=== PATIENT | male | born 1980 | race Caucasian/White ===

== ENCOUNTER 2018-02-10 17:38 | Emergency (ER) | payer BC ==
[2018-02-10 17:58] LABS: #Basophils 0.1 thou/uL (0.0-0.2); #Eosinphils 0.3 thou/uL (0.0-0.7); #Lymphocytes 2.8 thou/uL (1.20-3.40); #Monocytes 0.7 thou/uL (0.11-0.59); #Neutrophils 7.5 thou/uL (1.40-6.50); %Basophils 0.7 % (0.0-1.0); %Eosinophils 2.7 % (0.0-10.0); %Lymphocytes 24.7 % (21.0-51.0); %Monocytes 6.2 % (0.0-10.0); %Neutrophils 65.7 % (42.0-75.0); Mean Corpuscular HGB CONC 34.7 g/dL (32.0-36.0); Mean Corpuscular Hemoglobin 31.7 pg (27.0-31.0); Mean Corpuscular Volume 91.5 fL (78.0-98.0); Mean Platelet Volume 8.2 fL (7.4-10.4); Platelet Count 244 thou/uL (130-400); RBC Distribution Width 12.4 % (11.5-14.5); Red Blood Cell (RBC) Count 5.04 mill/uL (4.70-6.10); White Blood Cell (WBC) Count 11.4 thou/uL (4.8-10.8)
[2018-02-10 18:17] LABS: ALT (SGPT) 85 U/L (8-55); AST (SGOT) 44 U/L (5-34); Albumin 4.7 g/dL (3.5-5.0); Alkaline Phosphatase 63 U/L (40-150); Anion Gap 14 mmol/L (10-20); BUN (Urea Nitrogen) 15 mg/dL (8.9-20.6); Bilirubin, Total 0.4 mg/dL (0.2-1.2); CK (CPK) 235 U/L (30-200); Calc. Creatinine Clearance 0 mL/min (70-130); Calcium 9.9 mg/dL (7.8-10.44); Carbon Dioxide 24 mmol/L (22-29); Chloride 103 mmol/L (98-107); Estimated GFR-MDRD 74; Globulin 3.2 g/dL (2.4-3.5); Glucose 93 mg/dL (70-105); Lipase 21 U/L (8-78); Protein, Total 7.9 g/dL (6.0-8.3); Sodium 137 mmol/L (136-145)
--- NOTE | 2018-02-10 18:18 | RAD ---
SINGLE VIEW OF THE CHEST: 02/10/18 COMPARISON: None. HISTORY: Chest pain since today radiating to the left arm. FINDINGS: Single view of the chest shows a normal sized cardiomediastinal silhouette. There is no evidence of c onsolidation, mass, or pleural effusion. The bones are unremarkable. IMPRESSION: No evidence of acute cardiopulmonary disease. POS: C
[2018-02-10 18:21] LABS: CKMB 1.4 ng/mL (0-6.6); Troponin I Less than 0.010 ng/mL (< 0.028)
[2018-02-10] MEDS ORDERED: Nitroglycerin 2% Ointment 1 INCH/1 GM Packet ONE (18:35)
[2018-02-10 21:26] LABS: Troponin I Less than 0.010 ng/mL (< 0.028)
== END 2018-02-10 22:31 | disposition home or self-care (01) ==
LOC: ERS 17:38
DX: R07.89 Other chest pain (principal); F17.210 Nicotine dependence, cigarettes, uncomplicated; I10 Essential (primary) hypertension
CPT/HCPCS: 36415; 71045; 80053; 82553; 83690; 84484; 85025; 85379; 93005; 96360

== ENCOUNTER 2019-12-23 23:10 | Emergency (ER) | payer BC ==
[2019-12-23] MEDS ORDERED: Ondansetron PF 4 MG/2 ML Vial ONE (23:30)
[2019-12-23] MEDS ORDERED: Ketorolac Tromethamine 30 MG/ML VIAL ONE (23:30)
--- NOTE | 2019-12-24 00:01 | CT ---
CT OF THE ABDOMEN AND PELVIS WITHOUT IV CONTRAST INDICATION: Left-sided flank pain COMPARISON: None FINDINGS: The lack of IV contrast limits evaluation of the solid organs of the abdomen and pelvis. ABDOMEN: Lung bases: Clear Liver: Diffuse fatty infiltration with areas of focal fatty sparing near the gallbladder fossa Gallbladder: Normal appearing. Pancreas: Normal. Adrenal glands: Normal. Spleen: Normal. Kidneys and ureters: Normal. No hydronephrosis. Vasculature: Normal. Lymph nodes:There is nonspecific silvano mesentery within the central mesenteric root. No pathologicall y enlarged lymph nodes are evident. Free fluid in abdomen:No free fluid is evident. PELVIS: Small and large bowel: There are scattered colonic diverticula without evidence of active diverticuli tis. Appendix:Normal Bladder: Normal. Rectal and perirectal soft tissues:Normal. Reproductive structures: Normal. Free fluid in pelvis: No free fluid is evident. Lymphadenopathy pelvis: No lymphadenopathy is evident. Osseous structures: No acute osseous abnormality. No destructive osteolytic or osteoblastic lesion i s identified. There is scattered degenerative and osteoarthritic changes. Soft tissues:There is a fat-containing umbilical hernia IMPRESSION: 1. No renal or ureteral calculus. 2. Colonic diverticulosis without evidence of active diverticulitis. 3. Fatty infiltration of the liver 4. Mild central silvano mesentery.
[2019-12-24 00:18] LABS: Anion Gap 15 mmol/L (10-20); BUN (Urea Nitrogen) 10 mg/dL (8.9-20.6); Calc. Creatinine Clearance 0 mL/min (70-130); Calcium 9.7 mg/dL (7.8-10.44); Carbon Dioxide 21 mmol/L (22-29); Chloride 106 mmol/L (98-107); Estimated GFR-MDRD 86; Glucose 131 mg/dL (70-105); Potassium 3.4 mmol/L (3.5-5.1); Sodium 139 mmol/L (136-145)
[2019-12-24] MEDS ORDERED: Morphine 4 MG/ML VIAL ONE ×2 (00:27→02:36)
[2019-12-24 00:53] LABS: Bacteria/HPF None Seen HPF (None Seen); Bilirubin Negative (Negative); Blood, Urine Trace (Negative); Clarity Clear (Clear); Glucose, Urine (Dipstick) Normal (Negative); Leukocyte Negative Leu/uL (Negative); Nitrite Negative (Negative); Protein, Urine (Dipstick) Negative (Neg-Trace); RBC/HPF 0-3 HPF (0-3); Squamous Epithelial None Seen HPF (0-3); Urobilinogen Normal mg/dL (Less than 2); WBC/HPF 0-3 HPF (0-3)
[2019-12-24 01:03] LABS: #Basophils 0.1 thou/uL (0.0-0.2); #Eosinphils 0.2 thou/uL (0.0-0.7); #Lymphocytes 2.6 thou/uL (1.20-3.40); #Monocytes 0.6 thou/uL (0.11-0.59); #Neutrophils 5.4 thou/uL (1.40-6.50); %Basophils 0.8 % (0.0-1.0); %Eosinophils 2.8 % (0.0-10.0); %Monocytes 6.7 % (0.0-10.0); %Neutrophils 60.7 % (42.0-75.0); Hemoglobin 16.2 g/dL (14.0-18.0); Mean Corpuscular HGB CONC 34.7 g/dL (32.0-36.0); Mean Corpuscular Hemoglobin 32.3 pg (27.0-31.0); Platelet Count 238 thou/uL (130-400); RBC Distribution Width 12.1 % (11.5-14.5); Red Blood Cell (RBC) Count 5.01 mill/uL (4.70-6.10); White Blood Cell (WBC) Count 8.9 thou/uL (4.8-10.8)
--- NOTE | 2019-12-24 08:27 | CT ---
PRELIMINARY REPORT/[facility]/AFTER HOURS PROCEDURE CTA ABDOMEN AND PELVIS WITH INTRAVENOUS CONTRAST: CLINICAL HISTORY: ER 8... patient here for Lt flank pain. Started two days ago mild and got worse tonight. Sharp with r adiation to the front. Vomiting started tonight Eval for possible bowel ischemia. TECHNIQUE: Axial CTA images of the abdomen and pelvis with intravenous contrast. Three-dimensional MIP/volume re ndered reformations were performed. CONTRAST: Isovue-370 95 mL COMPARISON: CT stone protocol from 12/23/2019 11:50 PM CDT. FINDINGS: VASCULATURE: Aorta: No acute finding. No abdominal aortic aneurysm. No dissection. Celiac trunk: No acute finding. The celiac axis has a narrowed appearance central, with a J shaped ap pearance, best seen on the sagittal reformats. Superior mesenteric artery: No acute finding. No occlusion or significant stenosis. Inferior mesenteric artery: No acute finding. No occlusion or significant stenosis. Renal arteries: No acute finding. No occlusion or significant stenosis. Iliac arteries: No acute finding. No occlusion or significant stenosis. Lower thorax: Right greater than left basilar linear opacities, likely scarring or atelectasis. ABDOMEN Liver: Unremarkable. No mass. Gallbladder and bile ducts: No calcified stone. No ductal dilation. Pancreas: Unremarkable. No ductal dilation. Spleen: Unremarkable. Adrenals: No mass. Kidneys and ureters: The kidneys enhance symmetrically. No hydronephrosis. No solid mass. Stomach and bowel: No obstruction. No bowel wall thickening. No CT evidence of acute diverticulitis. There is colonic diverticulosis. Abdominal wall and soft tissues: Fat containing umbilical hernia. Appendix: No CT evidence for appendicitis. PELVIS: Bladder: Unremarkable. Reproductive: Unremarkable as visualized. Peritoneum: No free fluid. No free air. Nonspecific mild silvano mesentery. Lymph nodes: No lymphadenopathy. Bones: No acute osseous abnormality. 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 IMPRESSION: 1. No occlusion or hemodynamically significant stenosis of the arterial system of the abdomen or pelv is. No abdominal aortic aneurysm. No aortic dissection. 2. 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 ELECTRONICALLY SIGNED BY: Darion Ramirez MD December 24, 2019 2:46:17 AM CDT This report is intended for review by the ordering physician only, in accordance of law. If you recei ve this report in error, please call [facility] at [phone]. FINAL REPORT CT ABDOMEN AND PELVIS WITH IV CONTRAST: I agree with the preliminary report given by Dr. Darion Ramirez of [facility]. CODE QA POS: OFF
[2019-12-24] MEDS ORDERED: Iopamidol 370 76% 100 ML VIAL ONE (13:05)
== END 2019-12-24 03:35 | disposition home or self-care (01) ==
LOC: ERS 23:10
DX: R10.84 Generalized abdominal pain (principal); F17.220 Nicotine dependence, chewing tobacco, uncomplicated; I10 Essential (primary) hypertension; Z79.899 Other long term (current) drug therapy
CPT/HCPCS: 74174; 74176; 80048; 81003; 81015; 85025; 96361; 96374; 96375; 96376; J1885; J2270; J2405; Q9967

== ENCOUNTER 2024-05-18 15:23 | Outpatient (CLI) | payer BC | END 2024-05-18 15:24 | disposition home or self-care (01) | LOC: SCSMRI 15:23 | PROVIDERS: ATTEND Orthopaedic Surgery | DX: M25.571 Pain in right ankle and joints of right foot (principal) ==

== ENCOUNTER 2024-05-27 12:35 | Outpatient (CLI) | payer BC ==
[2024-05-27] MEDS ORDERED: Sterile Water 10 ML ONE (13:33)
[2024-05-27] MEDS ORDERED: Sincalide 5 MCG VIAL ONE (13:33)
[2024-05-27] MEDS ORDERED: Bacteriostatic Normal Saline 30 ML VIAL ONE (13:34)
== END 2024-05-27 12:36 | disposition home or self-care (01) ==
LOC: NM 12:35
PROVIDERS: ATTEND Physician Assistant Medical
DX: K76.0 Fatty (change of) liver, not elsewhere classified (principal); K59.00 Constipation, unspecified; R10.11 Right upper quadrant pain; R14.0 Abdominal distension (gaseous); R79.89 Other specified abnormal findings of blood chemistry
CPT/HCPCS: 78227; A9537; J2805

== ENCOUNTER 2025-03-21 14:54 | Emergency (ER) | payer BC ==
[2025-03-21 17:14] LABS: #Basophils 0.08 10x3/uL (0.0-0.2); #Eosinophils 0.21 10x3/uL (0.0-0.7); #Monocytes 0.69 10x3/uL (0.11-0.59); #Neutrophils 4.93 10x3/uL (1.40-6.50); %Basophils 0.9 % (0.0-1.0); %Eosinophils 2.5 % (0.0-10.0); %Lymphocytes 30.7 % (21.0-51.0); %Monocytes 8.1 % (0.0-10.0); %Neutrophils 57.4 % (42.0-75.0); Hematocrit 49.1 % (42.0-52.0); Hemoglobin 16.1 g/dL (14.0-18.0); Mean Corpuscular Hemoglobin 29.8 pg (27.0-31.0); Mean Corpuscular Volume 90.9 fL (78.0-98.0); Platelet Count 276 10x3/uL (130-400); Red Blood Cell (RBC) Count 5.40 mill/uL (4.70-6.10); White Blood Cell (WBC) Count 8.57 10x3/uL (4.8-10.8)
[2025-03-21 17:18] LABS: ALT (SGPT) 47 U/L (Less than 45); AST (SGOT) 38 U/L (11-34); Albumin 4.6 g/dL (3.1-4.5); Alkaline Phosphatase 64 U/L (40-110); Anion Gap 14 mmol/L (10-20); BUN (Urea Nitrogen) 10 mg/dL (8.9-20.6); Bilirubin, Total 0.5 mg/dL (0.3-1.2); Calc. Creatinine Clearance 0 mL/min (70-130); Calcium 9.9 mg/dL (7.8-10.44); Carbon Dioxide 23 mmol/L (22-29); Chloride 105 mmol/L (98-107); Globulin 3.0 g/dL (2.4-3.5); Glucose 91 mg/dL (70-105); Potassium 4.2 mmol/L (3.5-5.1); Sodium 138 mmol/L (136-145)
[2025-03-21] MEDS ORDERED: diphenhydrAMINE 50 MG/ML VIAL ONE (17:58)
[2025-03-21] MEDS ORDERED: Metoclopramide HCl 10 MG (2 mL) VIAL ONE (17:58)
[2025-03-21] MEDS ORDERED: Acetaminophen 500 MG TAB ONE (17:58)
== END 2025-03-21 20:52 | disposition home or self-care (01) ==
LOC: ERS 14:54
DX: R42 Dizziness and giddiness (principal); R29.700 NIHSS score 0; I10 Essential (primary) hypertension; E78.00 Pure hypercholesterolemia, unspecified; Z79.82 Long term (current) use of aspirin; Z79.899 Other long term (current) drug therapy
CPT/HCPCS: 36415; 70450; 71045; 80053; 85025; 93005; 96374; 96375; J1200; J2765; J2919